=== PATIENT | male | born 2005 | race Caucasian/White ===

== ENCOUNTER 2025-07-15 09:55 | Outpatient (REF) | payer OTHER, SELFPAY ==
--- NOTE | ~2025-07-15 | US_ITS ---
EXAMINATION: US PELVIS, LIMITED CLINICAL INFORMATION: Left inguinal pain after core Exercise/without COMPARISON: None available. TECHNIQUE: Grayscale imaging was performed in the left inguinal region. FINDINGS: , Mass, or fluid collection is evident. Physiologic sized lymph node is seen. US/US pelvic limited IMPRESSION: Unremarkable examination. Electronically signed by: Hilario Leung MD 07/15/2025 01:41 PM EDT
--- OUTSIDE RECORDS SUMMARY | 2025-07-15 11:22 | XMS_ITS | Data Portability ---
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 Plan of Treatment Reminders Order Date Submit Date Provider Last Modified By Organization Details Last Modified Time Details Appointments None recorded. Lab influenza virus A + B + SARS-CoV-2 (COVID19) Ag panel, rapid IA, upper respirator y specimen 2024 025 [id number] [facility], [facility] [facility], [place], [address], 5 03:38:03 rapid strep group A, throat 2022 023 [email or web address] [facility] [place], [facility] [place], [address], 3 11:02:03 culture, throat 2022 023 [facility], [address] [place] [address], [address], 3 09:31:58 Referral None recorded. Procedures None recorded. Surgeries None recorded. Imaging None recorded. Medication Orders Tamiflu 75 mg capsule 2024 025 DBA_[id number] [id number], [address] [facility], [place], [address], 5 03:38:03 Pataday Once Daily Relief 0.2 % eye drops 2022 023 [facility], [address], [place], [address], 3 11:02:03 benzonatat e 200 mg capsule 2022 023 [facility], [address], [place], [address], 3 11:02:03 azelastine 137 mcg (0.1 %) nasal spray 2022 023 [facility], [address] [facility] [address], [place], [address], 3 11:02:03 Patient TargetsNo targets recorded. Patient Instructions Encounter Date Encounter Id Patient Instructions Last Modified By Organization Details Last Modified Time 10/28/2024 [id number] A healthy lifest yle: care instructions DBA_PATCH_ [id number] Not available 12/14/2024 03:38:03 Thank you for visiting [facility]. We may be calling you to review your lab results or schedule a follow up appointment. The call will be through an automated system which asks you to press a romero to speak with one of our agents. Please be on the lookout for this call and listen to the message in its entirety. You may also view your lab results using the qunb lee, available in the Lee Store and [employer] ActX. First-time lee users will need to create an account; please note you l l need to select a login and password for the lee versus just using your patient portal login. Your lab results will be posted to the qunb lee as soon as they r e available. Need a note to excuse you from work or school? You can submit a request online at [email or web address]. We will respond to your request within 2 business days If you have any questions regarding your visit, our Aftercare department can be reached at [phone]. Our hours are Monday from 8 am 11 pm or Monday/Monday from 9a 8p. Flu Your Care Instructions Influenza (flu) is an infection in the lungs and breathing passages. It is caused by the influenza virus. There are different strains, or types, of the flu virus from year to year. Unlike the common cold, the flu comes on suddenly and the symptoms, such as a cough, congestion, fever, chills, fatigue, aches, and pains, are more severe. These symptoms may last up to 10 days. Although the flu can make you feel very sick, it usually doesn't cause serious health problems. Home treatment is usually all you need for flu symptoms. But your doctor may prescribe antiviral medicine to prevent other health problems, such as pneumonia, from developing. Older people and those who have a long-term health condition, such as lung disease, are most at risk for having pneumonia or other health problems. Follow-up care is a romero part of your treatment and safety. Be sure to make and go to all appointments, and call your doctor if you are having problems. It s also a good idea to know your test results and keep a list of the medicines you take. How can you care for yourself at home? Get plenty of rest. Drink plenty of fluids, enough so that your urine is light yellow or clear like water. If you have kidney, heart, or liver disease and have to limit fluids, talk with your doctor before you increase the amount of fluids you drink. Take an imie-tox-ljnvlxo pain medicine if needed, such as acetaminophen (Tylenol), ibuprofen (Advil, Motrin), or naproxen (Aleve), to relieve fever, headache, and muscle aches. Read and follow all instructions on the label. No one younger than 20 should take aspirin. It has been linked to Feroz syndrome, a serious illness. Do not smoke. Smoking can make the flu worse. If you need help quitting, talk to your doctor about stop-smoking programs and medicines. These can increase your chances of quitting for good. Breathe moist air from a hot shower or from a sink filled with hot water to help clear a stuffy nose. Before you use cough and cold medicines, check the label. These medicines may not be safe for young children or for people with certain health problems. If the skin around your nose and lips becomes sore, put some petroleum jelly on the area. To ease coughing: Drink fluids to soothe a scratchy throat. Suck on cough drops or plain hard candy. Take an rgfp-tpl-xtdawct cough medicine that contains dextromethorphan to help you get some sleep. Read and follow all instructions on the label. Raise your head at night with an extra pillow. This may help you rest if coughing keeps you awake. Take any prescribed medicine exactly as directed. Call your doctor if you think you are having a problem with your medicine. To avoid spreading the flu Wash your hands regularly, and keep your hands away from your face. Stay home from school, work, and other public places until you are feeling better and your fever has been gone for at least 24 hours. The fever needs to have gone away on its own without the help of medicine. Ask people living with you to talk to their doctors about preventing the flu. They may get antiviral medicine to keep from getting the flu from you. To prevent the flu in the future, get a flu vaccine every fall. Encourage people living with you to get the vaccine. Cover your mouth when you cough or sneeze. When should you call for help? Call 911 anytime you think you may need emergency care. For example, call if: You have severe trouble breathing. Call your doctor now or seek immediate medical care if: You have new or worse trouble breathing. You seem to be getting much sicker. You feel very sleepy or confused. You have a new or higher fever. You get a new rash. Watch closely for changes in your health, and be sure to contact your doctor if: You begin to get better and then get worse. You are not getting better after 1 week. Test Name: SARS-CoV-2 rapid ag (COVID-19); Result: NEGATIVE Your test today for COVID-19 infection was NEGATIVE. The next steps in your care depend on your whether you are having symptoms or had an exposure to Covid-19: NOTE: an EXPOSURE is defined as spending more than 10 minutes (within a 24 period) within an enclosed space with an individual who tested positive for Covid-19 If NO EXPOSURE to COVID-19: If you are ASYMPTOMATIC and NO KNOWN EXPOSURE: You are cleared to go back to work or school since you have no symptoms suggestive of COVID-19, have not had a high risk exposure to a person known to have COVID-19, and your Rapid Covid Test result is negative. If you have SYMPTOMS with NO KNOWN EXPOSURE to COVID-19: Your medical provider may have sent a second test to an outside lab to confirm that today s test was truly negative. The results of this second test (PCR technique) will be published to your [facility] patient portal ([email or web address]) as soon as they are available (3-5 days on average). For now, we ask that you go home under strict QUARANTINE, monitor for any worsening symptoms and return for re-evaluation if your symptoms become severe. If HIGH-RISK EXPOSURE: FULLY VACCINATED: If you are fully vaccinated and boosted (with the booster at least 2 weeks before the first date of exposure) or you are not yet eligible for a booster, NO QUARANTINE IS REQUIRED. You should wear a well-fitting mask while aroundothers for 10 days after the last date of exposure. NOT FULLY VACCINATED (including vaccinated and eligible for a booster but not yet boosted): You should QUARANTINE for 5 DAYS, then wear a well-fitting mask while around others for an additional 5 days. It is recommended that you TEST at DAY 5 if possible (either PCR or Rapid Antigen) If you DEVELOP SYMPTOMS: QUARANTINE and SEEK TESTING. In this situation, quarantine would end when the test is negative. If testing is not done, isolate according to the guidance above (Vaccinated vs NOT-Vaccinated). Be Safe MONITOR YOUR SYMPTOMS : If at any point your symptoms become worse or severe such as fever that will not improve with medicine, shortness of breath, chest pain or discomfort, abdominal pain, inability to tolerate eating and drinking, please return to [facility] or go to the closest Emergency Room. QUARANTINE INFO : If you were asked to quarantine yourself, please stay in your own part of the house away from everyone else, using your own bedroom and bathroom, if possible. If you need to be in a common area ensure that both you and anyone else around you is wearing a mask.You will be considered free of contagious COVID-19 10 days after your symptoms began if your symptoms have significantly improved and you have not had a fever for at least 24 hours (without using fever reducing medications like acetaminophen or ibuprofen). Please continue to follow all personal safety practices when outside the home, including (a) wearing a nose and mouth covering at all times when around people outside of your household, (b) social distancing, (c) hand hygiene, and (d) avoidance of contact with people with known or possible COVID-19. [email or web address] Not available 10/28/2024 17:40:46 05/07/2023 [id number] A healthy lifest yle: care instructions [email or web address] Not available 05/07/2023 11:02:03 sore throat in teens: care instructions [email or web address] Not available 05/07/2023 11:02:03 Thank you for visiting [employer]. We may be calling you to review your lab results or schedule a follow up appointment. The call will be through an automated system which asks you to press a romero to speak with one of our agents. Please be on the lookout for this call and listen to the message in its entirety. You may also view your lab results using the qunb lee, available in the Lee Store and [employer]. First-time lee users will need to create an account; please note you l l need to select a login and password for the lee versus just using your patient portal login. Your lab results will be posted to the qunb lee as soon as they r e available. If you have any questions regarding your visit, our Aftercare department can be reached at [phone]. Our hours are Monday from 8 am 11 pm or Monday/Monday from 9a 8p. Upper Respiratory Infection Your Care Instructions An upper respiratory infection, or URI, is an infection of the nose, sinuses, or throat. URIs are spread by coughs, sneezes, and direct contact. The common cold is the most frequent kind of URI. The flu and sinus infections are other kinds of URIs. Almost all URIs are caused by viruses. Antibiotics won't cure them. But you can treat most infections with home care. This may include drinking lots of fluids and taking fgqm-ybb-tpxjdkb pain medicine. You will probably feel better in 4 to 10 days. The doctor has checked you carefully, but problems can develop later. If you notice any problems or new symptoms, get medical treatment right away. Follow-up care is a romero part of your treatment and safety. Be sure to make and go to all appointments, and call your doctor if you are having problems. It's also a good idea to know your test results and keep a list of the medicines you take. How can you care for yourself at home? To prevent dehydration, drink plenty of fluids, enough so that your urine is light yellow or clear like water. Choose water and other caffeine-free clear liquids until you feel better. If you have kidney, heart, or liver disease and have to limit fluids, talk with your doctor before you increase the amount of fluids you drink. Take an icfz-yyb-xqyvgib pain medicine, such as acetaminophen (Tylenol), ibuprofen (Advil, Motrin), or naproxen (Aleve). Read and follow all instructions on the label. Before you use cough and cold medicines, check the label. These medicines may not be safe for young children or for people with certain health problems. Be careful when taking gcyr-gkk-dzokvus cold or flu medicines and Tylenol at the same time. Many of these medicines have acetaminophen, which is Tylenol. Read the labels to make sure that you are not taking more than the recommended dose. Too much acetaminophen (Tylenol) can be harmful. Get plenty of rest. Do not smoke or allow others to smoke around you. If you need help quitting, talk to your doctor about stop-smoking programs and medicines. These can increase your chances of quitting for good. When should you call for help? Call 911 anytime you think you may need emergency care. For example, call if: You have severe trouble breathing. Call your doctor now or seek immediate medical care if: You seem to be getting much sicker. You have new or worse trouble breathing. You have a new or higher fever. You have a new rash. Watch closely for changes in your health, and be sure to contact your doctor if: You have a new symptom, such as a sore throat, an earache, or sinus pain. You cough more deeply or more often, especially if you notice more mucus or a change in the color of your mucus. You do not get better as expected. Pharyngitis Your Care Instructions Infection by bacteria or a virus causes most sore throats. Cigarette smoke, dry air, air pollution, allergies, and yelling can also cause a sore throat. Sore throats can be painful and annoying. Fortunately, most sore throats go away on their own. If you have a bacterial infection, your doctor may prescribe antibiotics. Follow-up care is a romero part of your treatment and safety. Be sure to make and go to all appointments, and call your doctor if you are having problems. It''s also a good idea to know your test results and keep a list of the medicines you take. How can you care for yourself at home? If your doctor prescribed antibiotics, take them as directed. Do not stop taking them just because you feel better. You need to take the full course of antibiotics. Gargle with warm salt water once an hour to help reduce swelling and relieve discomfort. Use 1 teaspoon of salt mixed in 1 cup of warm water. Take an sxme-frb-umguvnt pain medicine, such as acetaminophen (Tylenol), ibuprofen (Advil, Motrin), or naproxen (Aleve). Read and follow all instructions on the label. Be careful when taking sswh-mrt-rgheenf cold or flu medicines and Tylenol at the same time. Many of these medicines have acetaminophen, which is Tylenol. Read the labels to make sure that you are not taking more than the recommended dose. Too much acetaminophen (Tylenol) can be harmful. Drink plenty of fluids. Fluids may help soothe an irritated throat. Hot fluids, such as tea or soup, may help decrease throat pain. Use yxsn-gjh-ogqwohq throat lozenges to soothe pain. Regular cough drops or hard candy may also help. These should not be given to young children because of the risk of choking. Do not smoke or allow others to smoke around you. If you need help quitting, talk to your doctor about stop-smoking programs and medicines. These can increase your chances of quitting for good. Use a vaporizer or humidifier to add moisture to your bedroom. Follow the directions for cleaning the machine. When should you call for help? Call your doctor now or seek immediate medical care if: You have new or worse trouble swallowing. Your sore throat gets much worse on one side. Watch closely for changes in your health, and be sure to contact your doctor if you do not get better as expected. [email or web address] Not available 05/07/2023 10:53:39 Reason for Referral None Reported. Results Created Date Observation Date Name Description Value Unit Range Abnormal Flag Note LastModifiedBy Organization Detail LastModifiedTime 05/07/20 23 05/07/2023 CULTU RE THROA T results Attac hment Not Available d Lab [address] [place] [address], [address], 05/09/2023 09:31:57 05/07/20 23 05/09/2023 CULTU RE THROA T final MICROB IOLOGY RESULT S Cultu re Throa t Final Sourc e: Repor t Date/ Time: 05/09 9:31A M Colle ction Date/ Time: 05/07 11:21 AM 1630 [facility] Infor matio n Penic illin Aller gy? N Cultu re Obser vatio n Susanne l upper Respi rator y sue isola goldy. No Beta Hemol ytic Strep isola goldy. Not Available d Lab [address] [place], [address], 05/09/2023 09:31:57 05/07/20 23 05/07/2023 rapid strep group A, throa t Group A Strep / internal control positive NEGATI VE (inter nal contro l positi ve) Not Available [address], [place], [address], 05/07/2023 10:41:42 10/28/19 25 10/28/2024 influ guillermo virus A + B + SARS- CoV-2 (COVI D19) Ag panel , rapid IA, upper respi rator y speci men Flu A POSITI VE Not Available [address], [place], [address], 10/28/2024 17:40:22 10/28/19 25 10/28/2024 influ guillermo virus A + B + SARS- CoV-2 (COVI D19) Ag panel , rapid IA, upper respi rator y speci men Flu B NEGATI VE Not Available [address], [place], [address], 10/28/2024 17:40:22 10/28/19 25 10/28/2024 influ guillermo virus A + B + SARS- CoV-2 (COVI D19) Ag panel , rapid IA, upper respi rator y speci men Covid-19 NEGATI VE Not Available [address], [place], [address], 10/28/2024 17:40:22 Result Notes None recorded. Problems No Known Problems Medical Equipment None Reported. Allergies No known drug allergies Medications Name Sig Start Date Stop Date Status Note LastModified by Organization Details LastModified Time benzonatate 200 mg capsule Take 1 capsule 3 times a day by oral route as needed for 7 days. 2022 active Not Available Not Available Not Avai lable Tamiflu 75 mg capsule Take 1 capsule twice a day by oral route for 5 days. 2024 active Not Available Not Available Not Avai lable azelastine 137 mcg (0.1 %) nasal spray [place]on 2 sprays twice a day by intranasal route for 14 days. 2022 active Not Available Not Available Not Avai lable Pataday Once Daily Relief 0.2 % eye drops INSTILL 1 DROP INTO AFFECTED EYE(S) BY OPHTHALMIC ROUTE ONCE DAILY 2022 active Not Available Not Available Not Avai lable Vitals Date Recorded Body height Body mass index (BMI) Body mass index (BMI) [Percentile] Per age and sex Body weight Heart rate Body temperature Respiratory rate Oxygen saturation Oxygen saturation in Arterial blood by Pulse oximetry Systolic And Diastolic Provider Name and Address Organization Details Last Updated DateTime 5 195.58 cm 26.7 kg/m2 85 % 535964. 28 g 111 /min 102.4 [degF] 16 /min 98 % 98 % 163/95 mm[Hg] [facility] Available [facility] 03:37:38 Date Recorded Body height Body mass index (BMI) [Percentile] Per age and sex Body mass index (BMI) Body weight Heart rate Body temperature Respiratory rate Oxygen saturation Oxygen saturation in Arterial blood by Pulse oximetry Systolic And Diastolic Provider Name and Address Organization Details Last Updated DateTime 3 193.04 cm 93 % 28 kg/m2 567934. 25 g 79 /min 98.4 [degF] 16 /min 97 % 97 % 131/84 mm[Hg] Ann ERIC - .[facility] 3 10:40:28 Social History None recorded. Functional Status None recorded. Mental Status None recorded. Family History Nothing Reported. Medical History No medical history recorded. Past Encounters Encounter ID Performer Location Encounter Start Date Encounter Closed Date Diagnosis/Indication Diagnosis SNOMED-CT Code Diagnosis ICD10 Code Diagnosis IMO Codes Diagnosis Note [id number] Abe Redman MD [facility] [address] [place] [address] 05/07/2023 09:50:02 05/07/2023 10:55:27 Acute pharyngitis 564901118 J02.9 Bilateral itching of eyes 5305358622 2695147 H57.89 Acute uppe r respiratory infection 94830154 J06.9 [id number] Axel Rainey MD [facility] [address] [place] [address] 10/28/2024 17:29:49 10/28/2024 17:55:32 Exposure to viral disease 4343527426 19914 Z20.828 signs and symptoms suggestive of viral communicab le illness Influenza caused by Influenza A virus 352175074 J09.X2 Health Concerns Section Related Observation LastModified by Organization Detai ls LastModified Time None Recorded Concern Status LastModified by Organization Details LastModified Time None Recorded Advance Directives Directive None Recorded Payers Insurance Date Sequence Insurance Name Policy Number Policy Keller Covered Member ID Keller Member ID Guarantor Name 12/14/2024 1 [employer] [id number] Ned Lehman [id number] Ned Lehman 12/14/2024 1 [employer] [id number] Ned Lehman [id number] Ned Lehman Notes Date Note Type Note Provider Name and Address Organization Details Recorded Time 05/07/2023 text/html Cough - cmdRepor goldy by PatientHPIFor patient presents with, patient reportscough which began one week ago. For pertinent findings, patient reports(+) productive sputum (semi)and(+) chest congestionbut reportsno fever,no body aches,no bloody sputum,no shortness of breath,no wheezing,no history of asthma,no history of smoking,no ear complaints,no eye complaints,no nasal complaints, andno throat complaints((+) sore throat; (+) chills - on day one, resolved now; (+) post - nasal drip). SXS Onset - 1 WEEK AGOKnown Sick Contacts - NONEOTC - DAYQUIL/NYQUIL Notes:18 yr old M presents with cough, chest congestion and sore throat x 1 week. Pt states his sxs have been improving since onset except for the cough. Pt also c/o B/L eye itching. Abe Redman MD [address] [place] [address],[address], [place], [address], [facility] - .[facility] 05/07/2023 13:59:18 10/28/2024 text/html COVID-19 VISIT - cmdReported by PatientHPIFor patient presents for, patient reportscovid-19 visit. For pertinent findings, patient reports(+) fever (t > 100.0) (102.4 in office),(+) nasal discharge/congestio n, and(+) coughbut reportsno body aches,no sore throat,no leg swelling,no neurologic deficits, andno sob((+)chest pain(+)b/l ear clogged). For covid-19 exposure, patient reportsno known recent exposure to covid-19and(+) uri symptoms - possible covid-19 infection. 19 yo M c/o cough, CP, nasal congestion, PND, B/L ear cloginess, and fever (102.4 in office) staring yesterday Pt took mucinex and dayquil with temporary relief Recent sick contact with someone who had similar sxs Pt denied any SOB, hx of alexa Hogan [address], [place], [address], [facility] - .[facility] 10/28/2024 18:23:50
--- OUTSIDE RECORDS SUMMARY | 2025-07-15 11:22 | XMS_ITS | Patient Health Record ---
Author Organization [facility] Address [address] [facility] [address] [place] [address] Care Team Providers Care Hand Welt Butter Name Role Phone RhondaJessie Primary Care Provider UnavailFahad Hernandez Unavailable [phone] Allergies No Known Allergies Results Component Value Reference Range Notes Rapid Strep A Reviewed date:09/14/2024 07:45:26 PM Interpretation:Positive: IQC Valid Performing Lab: Notes/Report: Positive: [facility]C Valid Reason For Referral No Information Medications Medication SIG (Take, Route, Frequency, Duration) Notes Start Date End Date Status DayQuil Multi-Symptom 1pm Active Amoxicillin 875 MG Tablet 1 tablet Orall y every 12 hrs; Duration: 10 days 09/14/2024 Active NyQuil Active Social History Social History Additional Details Category Social Info Options Details Pediatric - Adult School Grade? High Sch[employer] ol Lives With Parents? Yes Tobacco Use? No Problems Problem Type SNOMED Code ICD Code Onset Dates Problem Status W/U Status Risk Notes Problem Chronic sinusitis (11469113) Sinusitis, unspecified chronicity, unspecified location (J32.9) Active confirmed Problem Chronic sinusitis (23866315) Sinusitis, unspecified chronicity, unspecified location (J32.9) Active confirmed Vital Signs Heart Rate 93 /min 09/14/2024 Temperature 37.4 C 09/14/2024 Respiratory Rate 18 /min 09/14/2024 Oximetry 99 % 09/14/2024 Weight 102.6 kg 09/14/2024 Encounters Encounter Location Date Provider Diagnosis [facility] [place] [address] [place] [address] 09/14/2024 Fahad Chowdhury Strep pharyngitis J02.0 and Sore throat J02.9 Assessments Encounter Date Diagnosis (ICD Code) Assessment Notes Treatment Notes Treatment Clinical Notes Section Notes 09/14/2024 Strep pharyngitis (ICD-10 - J02.0) Visit [email or web address] (case-sensitive ) for helpful videos on how to care for your child at home. Please refer to [email or web address] for helpful information and access to your Patient Portal. The Patient Portal is available via the [employer] lali on your phone and online at [email or web address] Strep pharyngitis You have a positive strep test, which indicates a bacterial throat infection commonly referred to as strep throat. This can cause symptoms of throat pain, spots in the throat, and sometimes fever and swollen glands. How do I take care of this at home? A prescription for an oral antibiotic has been sent to your pharmacy. Make sure to take the full antibiotic course, even if your child improves quickly. Remember to switch toothbrushes 2-3 days after starting antibiotics to prevent re-infection. It is important to increase your liquid intake, ideally with Pedialyte or Gatorade as they contain sugar and salt which are important for the body. Warning signs that require IMMEDIATE recheck by a medical provider: * If you take a sudden turn for the worse * Fever of 100.4F (38C) for > 4-5 days, or fever >106F * Unable to swallow, unable to open mouth fully * Dizziness, neck pain/swelling * Persistent vomiting, bloody stools, severe/worsenin g abdominal pain/right lower abdominal pain * Severe headache, confusion, or severe sleepiness * Fast breathing, trouble breathing, or using extra chest muscles to breathe * Neck pain and/or stiffness * Cool hands/feet * New rash Impression/Medic al Decision Making/Plan: Patient with history and exam findings consistent with strep pharyngitis, confirmed by positive rapid strep test. No evidence of peritonsillar abscess, sepsis or serious bacterial infection at this time. Airway patent. Appropriate antibiotic prescribed as documented. Encourage hydration. Acetaminophen/ib uprofen for fever/pain. Follow-up with PMD in 2-3 days if symptoms not improving. Seek immediate medical attention if unable to swallow, difficulty breathing, severe pain, or any other concerns. Reviewed diagnosis, expected course, and treatment plan. Discharge instructions reviewed. Patient expressed understanding. All questions were answered, and patient is comfortable with discharge plan 09/14/2024 Sore throat (ICD-10 - J02.9) Impression/Medic al Decision Making/Plan: Patient with history and exam findings consistent with strep pharyngitis, confirmed by positive rapid strep test. No evidence of peritonsillar abscess, sepsis or serious bacterial infection at this time. Airway patent. Appropriate antibiotic prescribed as documented. Encourage hydration. Acetaminophen/ib uprofen for fever/pain. Follow-up with PMD in 2-3 days if symptoms not improving. Seek immediate medical attention if unable to swallow, difficulty breathing, severe pain, or any other concerns. Reviewed diagnosis, expected course, and treatment plan. Discharge instructions reviewed. Patient expressed understanding. All questions were answered, and patient is comfortable with discharge plan Plan Of Treatment Pending Test Test Name Order Date FOOT, MANE WRAP 06/16/2019 SURGICAL SHOE-SUPERVISOR TELLERS PROVIDED 05/10/2021 Insurance Providers Payer Name Payer Address Payer Phone Subscriber Number Group Number Insured Name Patient Relationship to Insured Coverage Start Date Coverage End Date [facility] [id number] [place] [id number] Ned Lehman Self - patient is the insured 9 Medical (General) History Medical History History ICD Code *No Significant Medical History Surgical History Surgery Date(Month/Year) Hospitalization History Reason Date(Month/Year)
== END 2025-07-15 09:56 | disposition home or self-care (01) ==
LOC: HO.UMASIMG 09:55
PROVIDERS: Visit Provider Emergency Medicine
DX: R10.814 Left lower quadrant abdominal tenderness (principal)
CPT/HCPCS: 76857

== ENCOUNTER → 2025-07-15 13:00 | Outpatient (BNV) | payer OTHER, SELFPAY | PROVIDERS: Visit Provider Radiology Diagnostic Radiology | DX: R10.32 Left lower quadrant pain (principal) | CPT/HCPCS: 76857 ==